=== PATIENT | female | born 1995 | race Caucasian/White ===

== ENCOUNTER 2017-10-03 18:05 | Emergency (ER) | payer MEDICAID, OTHER ==
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
[2017-10-03 20:19] VITALS: BP 114/64
--- NOTE | 2017-10-03 21:21 | RADIOLOGY REPORT (SQ) ---
EXAM DESCRIPTION: VENOUS UNILATERAL LOWER COMPLETED DATE/TIME: 10/03/2017 9:09 pm REASON FOR STUDY: LLE swelling pain COMPARISON: None. TECHNIQUE: Dynamic and static lubin scale and color images acquired of the left leg venous system. Se lected spectral images acquired with additional compression and augmentation maneuvers. The contralat eral common femoral vein and saphenofemoral junction were also imaged. Images stored on PACS. LIMITATIONS: None. FINDINGS: COMMON FEMORAL: Normal phasicity, compression and augmentation. No visualized echogenic ma terial on lubin scale. No defects on color images. FEMORAL: Normal compression and augmentation. No visualized echogenic material on lubin scale. No defe cts on color images. POPLITEAL: Normal compression, augmentation. No visualized echogenic material on lubin scale. No defec ts on color images. CALF VESSELS: Normal compression, augmentation. No visualized echogenic material on lubin scale. No de fects on color images. GSV and SSV: Normal compression, augmentation. No visualized echogenic material on lubin scale. No def ects on color images. ANY DEEP VENOUS INSUFFICIENCY: Not evaluated. ANY EVIDENCE OF POPLITEAL CYST: No. OTHER: No other significant finding. CONTRALATERAL COMMON FEMORAL VEIN AND SAPHENOFEMORAL JUNCTION: Normal phasicity, compression and augmentation. No visualized echogenic material on lubin scale. No de fects on color images. IMPRESSION: NO EVIDENCE OF DVT OR SVT IN THE LEFT LEG. TECHNICAL DOCUMENTATION: JOB ID: [id number] [email or web address]- All Rights Reserved Reading location - IP/workstation name: [email or web address]
== END 2017-10-03 20:19 | disposition home or self-care (01) ==
LOC: ER 18:05
DX: S70.12XA Contusion of left thigh, initial encounter (principal); W13.3XXA Fall through floor, initial encounter; Y92.009 Unspecified place in unspecified non-institutional (private) residence as the place of occurrence of the external cause
CPT/HCPCS: 93971; 99284